=== PATIENT | male | born 1955 | race Caucasian/White ===

== ENCOUNTER → 2019-09-01 | Outpatient (CLI) | payer OTHER ==
--- NOTE | 2019-09-01 13:04 | CT ---
EXAMINATION TYPE: CT heart w calcium score DATE OF EXAM: 09/01/2019 COMPARISON: HISTORY: Screening for cardiovascular disorder. 213.[address] DLP: 67.2 mGycm Automated exposure control for dose reduction was used. CT CALCIUM SCORING Coronary calcium is a marker for plaque (fatty deposits) in a blood vessel or atherosclerosis (harden ing of the arteries). The presence and amount of calcium detected in a coronary artery by the CT sca n, indicates the presence and amount of atherosclerotic plaque. These calcium deposits appear years before the development of heart disease symptoms such as chest pain and shortness of breath. A calcium score is computed for each of the coronary arteries based upon the volume and density of th e calcium deposits. This can be referred to as your calcified plaque burden. It does not correspond directly to the percentage of narrowing in the artery but does correlate with the severity of the un derlying coronary atherosclerosis. PROCEDURE TECHNIQUE - Prospective Gating was used. Slice thickness: 3mm. Density threshold (HU): 130, Pixel threshold: 3, Algorithm: discrete. RESULTS Region: LM Calcium Score ([place]): 59.63 Volume (mm3): 44.72 Mass (g): 14.91 Region: RCA Calcium Score ([place]): 27.61 Volume (mm3): 30.37 Mass (g): 10.12 Region: LAD Calcium Score ([place]): 156.43 Volume (mm3): 123.68 Mass (g): 41.23 Region: CX Calcium Score ([place]): 0 Volume (mm3): 0 Mass (g): 0 Region: PDA Calcium Score ([place]): 0 Volume (mm3): 0 Mass (g): 0 Total: Calcium Score ([place]): 243.67 Volume (mm3): 198.76 Mass (g): 66.25 TOTAL CALCIUM SCORE: IMPRESSION: Calcium Score: 243.67 Implication: Moderate atherosclerotic plaque Risk of Coronary Artery Disease: Mild coronary artery disease highly likely, significant narrowing is possible CALCIUM SCORE IMPLICATION RISK OF C ORONARY ARTERY DISEASE 0 No identifiable plaque Very low, generally less than 5% 1-10 Minimal identifiable plaque Very unlikely, less than 10% 11-100 Definite, at least mild atherosclerotic plaque Mild or m inimal coronary narrowings likely 101-400 Definite, at least moderate atherosclerotic plaque Mild coronary ar osito disease highly likely, significant narrowing possible 401 or Higher Extensive atherosclerotic plaque High lik elihood of at least one significant coronary narrowing
== END ==
LOC: RADCTMAIN 08:43
PROVIDERS: ATTEND Internal Medicine
DX: I70.0 Atherosclerosis of aorta (principal); E78.5 Hyperlipidemia, unspecified
CPT/HCPCS: 75571

== ENCOUNTER 2019-09-09 09:31 | Day surgery (SDC) | payer OTHER ==
[2019-09-07 12:28] VITALS: BMI 26.6
[~2019-09-09 09:31] MED LIST: LACTATED RINGERS 1,000 ML IV SCH; LIDOCAINE 1% 20 ML VIAL (10MG/ML) FOR IV START INTRADERMA PRN
[2019-09-09 10:41] VITALS: RESP 16; TEMP 98.3
[2019-09-09] MEDS ORDERED: PROPOFOL 10 MG/ML 20 ML VIAL IV ONE (11:33)
--- NOTE | 2019-09-09 11:46 | P.PCN ---
Date of Procedure: 09/09/19 Procedure(s) Performed: BRIEF HISTORY: Patient is a 64-year-old pleasant male scheduled for an elective colonoscopy as a part of screening for colorectal neoplasia. PROCEDURE PERFORMED: Colonoscopy. PREOPERATIVE DIAGNOSIS: Screening for colon cancer. IV sedation per Anesthesia. PROCEDURE: After informed consent was obtained, the patient, was brought into the endoscopy unit. IV sedation was administered by Anesthesia under continuous monitoring. Digital rectal examination was normal. Initially the Olympus CF-160 flexible video colonoscope was then inserted in the rectum, gradually advanced into the cecum without any difficulty. Careful examination was performed as the scope was gradually being withdrawn. Ileocecal valve and the appendiceal orifice were visualized and appeared normal. Prep was excellent. Mucosa of the cecum, ascending colon, transverse colon, descending colon, sigmoid colon, and rectum appeared normal. Scattered right-sided diverticulosis seen. Retroflexion was performed in the rectum and no lesions were seen. The patient tolerated the procedure well. IMPRESSION: Normal-appearing colon from rectum to cecum with no evidence of colorectal neoplasia Scattered right-sided diverticulosis. RECOMMENDATIONS: Findings of this examination were discussed with the patient as well as his family. He was advised to have a repeat screening colonoscopy in 10 yrs
[2019-09-09 12:11] VITALS: BP 114/79; PULSE 69
== END 2019-09-09 12:38 | disposition home or self-care (01) ==
LOC: ORWHC2ENDO 09:31
PROVIDERS: ATTEND Internal Medicine Gastroenterology
DX: Z12.11 Encounter for screening for malignant neoplasm of colon (principal); K57.30 Diverticulosis of large intestine without perforation or abscess without bleeding; Z98.1 Arthrodesis status; Z90.89 Acquired absence of other organs
CPT/HCPCS: J2704; G0121